=== PATIENT | male | born 1950 | race Caucasian/White ===

== ENCOUNTER 2021-11-15 06:55 | Emergency (ER) | payer BC ==
[~2021-11-15] VITALS: Ht 175.3 cm; Wt 54.0 kg
[2021-11-15] MEDS ORDERED: P50 MT (07:40)
[2021-11-15] MEDS ORDERED: ALBU6.7H15 INH (07:41)
[2021-11-15] MEDS ORDERED: AZIT250T12 MT (07:41)
[2021-11-15] MEDS ORDERED: PREDNISONE 20MG TABLET PO ONE (07:45)
[2021-11-15] MEDS ORDERED: ALBUTEROL (0.083%) 2.5MG/3ML NEB HHN ONE (07:45)
[2021-11-15] MEDS ORDERED: AZITHROMYCIN 500 MG TABLET PO ONE (07:45)
[2021-11-15 11:26] VITALS: BP 139/77
== END 2021-11-15 11:45 | disposition home or self-care (01) ==
LOC: ER 07:35
DX: J44.1 Chronic obstructive pulmonary disease with (acute) exacerbation (principal); F17.290 Nicotine dependence, other tobacco product, uncomplicated; F12.10 Cannabis abuse, uncomplicated
CPT/HCPCS: 94640; 99283; J7512